=== PATIENT | female | born 1985 | race Caucasian/White ===

== ENCOUNTER 2019-07-22 15:59 | Emergency (ER) | payer OTHER ==
[~2019-07-22] VITALS: Ht 167.6 cm; Wt 95.9 kg
[2019-07-22 17:07] LABS: HEMATOCRIT 49.3 % (36.0-47.0); HEMOGLOBIN 15.8 g/dl (12.0-15.5); MEAN CORPUSCULAR HEMOGLOBIN 31.5 pg (27.0-33.0); MEAN CORPUSCULAR VOLUME 98.4 fl (80.0-96.0); PLATELET COUNT, AUTOMATED 198 10^3/uL (150-450); RED BLOOD COUNT 5.01 10^6/uL (4.00-5.40); WHITE BLOOD COUNT 9.7 10^3/uL (4.0-10.0)
[2019-07-22] MEDS ORDERED: NS 1,000 ML IV ONE (17:15)
[2019-07-22] MEDS ORDERED: SUCRALFATE 1 GM TAB PO ONE (17:15)
[2019-07-22] MEDS ORDERED: ONDANSETRON 4MG/2ML VIAL (J2405) IV ONE (17:15)
[2019-07-22] MEDS ORDERED: GI COCKTAIL 50ML BTL(HYOSCYAMINE/MAALOX/LIDOCAINE VISCOUS)(1:3:1) PO ONE (17:15)
[2019-07-22] MEDS ORDERED: DICYCLOMINE 10 MG CAP PO ONE (17:15)
[2019-07-22 17:26] LABS: ALT/SGPT 30 U/L (12-78); BLOOD UREA NITROGEN 8 MG/DL (7-18); CALCIUM LEVEL 8.7 MG/DL (8.5-10.1); CARBON DIOXIDE LEVEL 26 MEQ/L (21-32); CHLORIDE LEVEL 108 MEQ/L (98-107); CREATININE FOR GFR 0.74 MG/DL (0.55-1.30); GLOMERULAR FILTRATION RATE > 60.0 (>60); GLUCOSE, FASTING 88 MG/DL (70-100); POTASSIUM SERUM 4.1 MEQ/L (3.5-5.1); SODIUM LEVEL 140 MEQ/L (136-145)
[2019-07-22 17:27] LABS: ALBUMIN 3.8 GM/DL (3.2-5.2); BILIRUBIN,TOTAL 0.4 MG/DL (0.2-1.0); LIPASE 106 U/L (73-393); TOTAL PROTEIN 6.9 GM/DL (6.4-8.2)
--- NOTE | 2019-07-22 18:41 | REP ---
Three views chest and abdomen: 07/22/2019. Indication: Abdominal pain. Comparison: None. Findings: The lungs are clear. There is no pleural effusion or pneumothorax. The cardiomediastinal silhouette is unremarkable. There is dextroscoliosis of the lumbar spine which may be positional. Bowel gas pattern is unremarkable. Impression: There is no evidence of acute abdominal process. Clear lungs. Electronically Signed by Mendel Taylor DO 07/22/2019 06:33 P
[2019-07-22] MEDS ORDERED: KETOROLAC 30 MG/ML VIAL (J1885) IV ONE (19:00)
--- NOTE | 2019-07-22 20:08 | REPVR ---
PROCEDURE INFORMATION: Exam: CT Abdomen And Pelvis Without Contrast Exam date and time: 07/22/2019 7:10 PM Clinical history: 33 years old, female; Abdominal pain; Flank; Left; Additional info: L flank pain TECHNIQUE: Imaging protocol: Computed tomography of the abdomen and pelvis without contrast. Radiation optimization: All CT scans at this facility use at least one of these dose optimization techniques: automated exposure control; mA and/or kV adjustment per patient size (includes targeted exams where dose is matched to clinical indication); or iterative reconstruction. COMPARISON: CR Abdomen,Flat Upright,PA CHEST 07/22/2019 5:51 PM FINDINGS: Lungs: Mild bibasilar dependent change. Liver: Hepatomegaly measuring 24 cm. Gallbladder and bile ducts: Normal. No calcified stones. No ductal dilation. Pancreas: Normal. No ductal dilation. Spleen: Normal. No splenomegaly. Adrenals: Normal. No mass. Kidneys and ureters: Normal. No hydronephrosis. Stomach and bowel: Unremarkable. No obstruction. No mucosal thickening. Appendix: No evidence of appendicitis. Intraperitoneal space: Unremarkable. No free air. No significant fluid collection. Vasculature: There are several phleboliths within the pelvis. Lymph nodes: Unremarkable. No enlarged lymph nodes. Bladder: Unremarkable as visualized. Reproductive: Unremarkable as visualized. Bones/joints: Unremarkable. No acute fracture. Soft tissues: Unremarkable. IMPRESSION: No obstructive uropathy. Electronically signed by: Michael Diaz On 07/22/2019 20:07:42 PM
[2019-07-22] MEDS ORDERED: DICY10CA13 PO (20:22)
[2019-07-22 20:24] VITALS: BP 119/78
== END 2019-07-22 20:30 | disposition home or self-care (01) ==
LOC: M ED 15:59
DX: R10.9 Unspecified abdominal pain (principal); R11.0 Nausea; R19.7 Diarrhea, unspecified; F17.200 Nicotine dependence, unspecified, uncomplicated
CPT/HCPCS: 36415; 74021; 74176; 80047; 80053; 81001; 83690; 84702; 85027; 96361; 96374; 96375; 99284; J1885; J2405

== ENCOUNTER 2020-09-10 13:04 | Emergency (ER) | payer OTHER ==
[~2020-09-10] VITALS: Ht 170.2 cm; Wt 92.9 kg
[~2020-09-10 13:04] MED LIST: DICY10CA13 PO
[2020-09-10 13:05] VITALS: BP 121/66
[2020-09-10] MEDS ORDERED: NORC1TAB7 PO (13:58)
[2020-09-10] MEDS ORDERED: PENI500T PO (13:58)
== END 2020-09-10 14:09 | disposition home or self-care (01) ==
LOC: M ED 13:04
DX: K08.89 Other specified disorders of teeth and supporting structures (principal); R68.84 Jaw pain; R22.0 Localized swelling, mass and lump, head; F17.200 Nicotine dependence, unspecified, uncomplicated; Z88.0 Allergy status to penicillin

== ENCOUNTER 2021-02-03 22:50 | Emergency (ER) | payer OTHER, SELFPAY ==
[~2021-02-03] VITALS: Ht 167.6 cm; Wt 94.9 kg
[2021-02-03 22:50] VITALS: BP 167/91
[~2021-02-03 22:50] MED LIST changes: +NORC1TAB7 PO; +PENI500T PO
[2021-02-03] MEDS ORDERED: PERCOCET 5MG/325MG TAB PO ONE (23:25)
[2021-02-03] MEDS ORDERED: AUGMENTIN 875 MG TAB PO ONE (23:30)
[2021-02-04] MEDS ORDERED: AUGM875T28 PO (00:02)
== END 2021-02-04 00:27 | disposition home or self-care (01) ==
LOC: M ED 22:50
DX: S02.5XXA Fracture of tooth (traumatic), initial encounter for closed fracture (principal); X58.XXXA Exposure to other specified factors, initial encounter; Y92.89 Other specified places as the place of occurrence of the external cause; F33.9 Major depressive disorder, recurrent, unspecified; F41.9 Anxiety disorder, unspecified; F17.210 Nicotine dependence, cigarettes, uncomplicated

== ENCOUNTER 2021-03-17 11:13 | Emergency (ER) | payer OTHER ==
[~2021-03-17 11:13] MED LIST changes: +AUGM875T28 PO
[2021-03-17 13:04] LABS: HEMATOCRIT 42.3 % (36.0-47.0); HEMOGLOBIN 13.5 g/dl (12.0-15.5); MEAN CORPUSCULAR HEMOGLOBIN 30.7 pg (27.0-33.0); MEAN CORPUSCULAR HGB CONC 31.9 g/dl (32.0-36.5); MEAN CORPUSCULAR VOLUME 96.1 fl (80.0-96.0); PLATELET COUNT, AUTOMATED 246 10^3/uL (150-450); WHITE BLOOD COUNT 10.2 10^3/uL (4.0-10.0)
[2021-03-17 13:28] LABS: ACETAMINOPHEN LEVEL < 2.0 UG/ML (10.0-30.0); ALBUMIN 3.7 GM/DL (3.2-5.2); ALT/SGPT 17 U/L (12-78); BILIRUBIN,DIRECT 0.3 MG/DL (0.0-0.2); BILIRUBIN,TOTAL 0.9 MG/DL (0.2-1.0); BLOOD UREA NITROGEN 9 MG/DL (7-18); CALCIUM LEVEL 8.1 MG/DL (8.5-10.1); CARBON DIOXIDE LEVEL 26 MEQ/L (21-32); CHLORIDE LEVEL 108 MEQ/L (98-107); CREATININE FOR GFR 0.71 MG/DL (0.55-1.30); ETHYL ALCOHOL (ETHANOL) < 0.003 % (0.000-0.010); GLOMERULAR FILTRATION RATE > 60.0 (>60); GLUCOSE, FASTING 81 MG/DL (70-100); POTASSIUM SERUM 3.4 MEQ/L (3.5-5.1); SALICYLATE LEVEL 3.4 MG/DL (5.0-30.0); SODIUM LEVEL 139 MEQ/L (136-145); TOTAL PROTEIN 6.8 GM/DL (6.4-8.2)
[2021-03-17 16:19] VITALS: BP 134/72
== END 2021-03-17 16:21 | disposition home or self-care (01) ==
LOC: M ED 11:13
DX: F06.2 Psychotic disorder with delusions due to known physiological condition (principal); R45.851 Suicidal ideations; F32.9 Major depressive disorder, single episode, unspecified; F17.200 Nicotine dependence, unspecified, uncomplicated; F12.10 Cannabis abuse, uncomplicated

== ENCOUNTER 2022-04-03 15:00 | Inpatient (IN) | payer OTHER ==
[~2022-04-03] VITALS: Ht 167.6 cm; Wt 93.0 kg
[2022-04-03 15:43] LABS: HEMOGLOBIN 13.4 g/dl (12.0-15.5); MEAN CORPUSCULAR HEMOGLOBIN 30.7 pg (27.0-33.0); MEAN CORPUSCULAR HGB CONC 32.7 g/dl (32.0-36.5); MEAN CORPUSCULAR VOLUME 93.8 fl (80.0-96.0); PLATELET COUNT, AUTOMATED 232 10^3/uL (150-450); RED BLOOD COUNT 4.37 10^6/uL (4.00-5.40); WHITE BLOOD COUNT 6.3 10^3/uL (4.0-10.0)
[2022-04-03 16:14] LABS: ACETAMINOPHEN LEVEL < 2.0 UG/ML (10.0-30.0); ALBUMIN 3.5 GM/DL (3.2-5.2); ALT/SGPT 16 U/L (12-78); BILIRUBIN,DIRECT 0.1 MG/DL (0.0-0.2); BILIRUBIN,TOTAL 0.6 MG/DL (0.2-1.0); BLOOD UREA NITROGEN 8 MG/DL (7-18); CALCIUM LEVEL 8.9 MG/DL (8.5-10.1); CARBON DIOXIDE LEVEL 22 MEQ/L (21-32); CHLORIDE LEVEL 116 MEQ/L (98-107); CREATININE FOR GFR 0.73 MG/DL (0.55-1.30); ETHYL ALCOHOL (ETHANOL) 0.003 % (0.000-0.010); GLOMERULAR FILTRATION RATE > 60.0 (>60); GLUCOSE, FASTING 97 MG/DL (70-100); SALICYLATE LEVEL 3.3 MG/DL (5.0-30.0); SODIUM LEVEL 144 MEQ/L (136-145); TOTAL PROTEIN 6.4 GM/DL (6.4-8.2)
[2022-04-03 17:10] LABS: RSV AMPLIFICATION NEGATIVE (NEGATIVE)
[2022-04-03] MEDS ORDERED: HOME MED LIST COMPLETE! XX SCH ×2 (17:30→21:15)
[2022-04-03 17:54] LABS: AMPHETAMINES LEVEL URINE POSITIVE (NEGATIVE); BARBITURATES URINE NEGATIVE (NEGATIVE); BENZODIAZEPINES URINE NEGATIVE (NEGATIVE); CANNABINOIDS URINE POSITIVE (NEGATIVE); COCAINE METABOLITE URINE NEGATIVE (NEGATIVE); METHADONE URINE NEGATIVE (NEGATIVE); OPIATES URINE NEGATIVE (NEGATIVE); PHENCYCLIDINE URINE NEGATIVE (NEGATIVE)
[2022-04-04] MEDS ORDERED: MOM 30ML SUSPENSION UDC PO PRN (15:25)
[2022-04-04] MEDS ORDERED: MAALOX 30 ML SUSP *UDC PO PRN (15:25)
[2022-04-04] MEDS ORDERED: traZODone 50 MG TAB PO PRN (15:25)
[2022-04-04] MEDS ORDERED: ACETAMINOPHEN TAB 650MG DOSE (2X325MG) PO PRN (15:25)
[2022-04-05 06:19] VITALS: BP 113/59
[2022-04-05] MEDS: NICOTINE 21MG/24HR 1 EA TRANSDERMAL TD SCH (09:00)
[2022-04-05 18:42] VITALS: BP 111/65
[2022-04-06 06:56] VITALS: BP 131/61
[2022-04-06] MEDS: NICOTINE 21MG/24HR 1 EA TRANSDERMAL TD SCH (09:00)
[2022-04-06 17:41] VITALS: BP 112/64
[2022-04-07 06:31] VITALS: BP 109/51
[2022-04-07] MEDS: NICOTINE 21MG/24HR 1 EA TRANSDERMAL TD SCH (09:00)
[2022-04-07 18:00] VITALS: BP 113/59
[2022-04-08 06:37] VITALS: BP 110/73
[2022-04-08] MEDS: NICOTINE 21MG/24HR 1 EA TRANSDERMAL TD SCH (09:00)
== END 2022-04-08 11:19 | disposition home or self-care (01) | DRG 755 ==
LOC: M ED 15:00 → M ED INP 04-04 15:25 → M PSY 04-04 16:30
PROVIDERS: ADMIT Student in an Organized Health Care Education/Training Program; ATTEND Student in an Organized Health Care Education/Training Program
DX: F43.9 Reaction to severe stress, unspecified (principal); F60.89 Other specific personality disorders; R45.851 Suicidal ideations; Z63.0 Problems in relationship with spouse or partner; Z63.5 Disruption of family by separation and divorce; Z91.410 Personal history of adult physical and sexual abuse; Z20.822 Contact with and (suspected) exposure to COVID-19